=== PATIENT | female | born 1995 | race Caucasian/White ===

== ENCOUNTER 2017-06-10 22:13 | Emergency (ER) | payer OTHER ==
[~2017-06-10] VITALS: Ht 152.4 cm; Wt 60.0 kg
[2017-06-10 22:16] VITALS: TEMP 36.7; Ht 152.4 cm; Wt 60.0 kg
[2017-06-10] MEDS ORDERED: ALBUT/IPRATROP 3MG/0.5MG NEB 3 ML VIAL INH STA (22:33)
[2017-06-10] MEDS ORDERED: RANITIDINE HCL 50 MG/100 ML D5W IV STA (22:33)
[2017-06-10] MEDS ORDERED: SODIUM CHLORIDE 0.9% 1000ML 1,000 ML IV STA (22:33)
[2017-06-10] MEDS ORDERED: DEXAMETHASONE SOD INJ 4 MG/ML VIAL IV STA (22:33)
[2017-06-10] MEDS ORDERED: EpINEphrine INJ 1MG/ML AMP 1 MG/ML AMP IM STA (22:33)
[2017-06-10] MEDS ORDERED: DiphenhydrAMINE HCL 50 MG/ML VIAL IV STA (22:33)
[2017-06-10 22:47] VITALS: O2SAT 96
[2017-06-10] MEDS ORDERED: BCPILLS PO (23:46)
[2017-06-11 00:49] VITALS: BP 114/57; PULSE 92; O2SAT 99
[2017-06-11] MEDS ORDERED: EPINEPHRINE ADULT AUTO-INJECT 0.3 MG SYR IM STA (01:03)
[2017-06-11] MEDS ORDERED: EPP3/2 IM (01:06)
[2017-06-11] MEDS ORDERED: PRED50TA PO (01:06)
--- NOTE | 2017-06-11 03:12 | EMERGENCY ROOM VISIT NOTE ---
History Report prepared by [place]: Sarthak Solis Under the Supervision of: Dr. Wilfred Burton M.D. First contact with patient: 22:23 Chief Complaint: ALLERGIC REACTION Stated Complaint: HUVESMWHEEZING,FAST HEART RATE,HOT History of Present Illness The patient is a 21 year old female who presents to the Emergency Room with complaints of a sudden allergic reaction that occurred two hours ago. The patient states that she has an allergy to nuts and unknowingly ate a cashew in her [employer] bar two hours ago. The patient states that she normally eats [employer] bars , but was unaware the cranberry flavor had cashews in them. She states that following eating the nut, she experienced shortness of breath, hives, and tachycardia. The patient states that she took Benadryl for her symptoms, but became nauseated and vomited. The patient admits that following her episode of vomiting, she felt relieved. She states that she took another Benadryl since she vomited her first pill. The patient admits to an allergy to amoxicillin and a history of asthma. She denies having an EpiPen. Source of History: patient Onset: two hours ago Position: other (global) Quality: other (hives) Modifying Factors (Relieving): other (vomiting, Benadryl) Associated Symptoms: + SOB, + nausea, + vomiting Review of Systems See HPI for pertinent positives and negatives. A total of ten systems were reviewed and were otherwise negative. Past Medical & Surgical Medical Problems: (1) Asthma (2) Nut allergy Family History Patient reports no known family medical history. Social History Smoking Status: Former Smoker Drug Use: none Marital Status: single Housing Status: lives with roommate Occupation Status: [employer] student Current/Historical Medications Scheduled Control Pills ( Control Pills), 1 TAB PO DAILY Prednisone (Prednisone), 50 MG PO DAILY Scheduled PRN Epinephrine (Epipen), 0.3 MG IM UD PRN for ALLERGIC REACTION Allergies Coded Allergies: Amoxicillin (Verified Allergy, Severe, hives, 06/10/17) NUTS (Verified Allergy, Severe, hives, swelling throat, 06/10/17) Physical Exam Vital Signs Date Time Temp Pulse Resp B/P (MAP) Pulse Ox O2 Delivery O2 Flow Rate FiO2 06/11/17 00:49 92 18 114/57 99 Room Air 06/10/17 23:18 95 20 120/53 100 Room Air 06/10/17 22:51 104 20 130/77 99 Room Air 06/10/17 22:47 96 Room Air 06/10/17 22:46 103 06/10/17 22:34 96 Room Air 06/10/17 22:16 36.7 133 18 150/75 94 Room Air Physical Exam GENERAL: Awake, alert, well-appearing, in no distress HENT: Normocephalic, atraumatic. Oropharynx unremarkable. EYES: Normal conjunctiva. Sclera non-icteric. NECK: Supple. No nuchal rigidity. FROM. No JVD. RESPIRATORY: Clear to auscultation. CARDIAC: Regular rate, normal rhythm. Extremities warm and well perfused. Pulses equal. ABDOMEN: Soft, non-distended. No tenderness to palpation. No rebound or guarding. No masses. RECTAL: Deferred. MUSCULOSKELETAL: Chest examination reveals no tenderness. The back is symmetrical on inspection without obvious abnormality. There is no CVA tenderness to palpation. No joint edema. LOWER EXTREMITIES: Calves are equal size bilaterally and non-tender. No edema. No discoloration. NEURO: Normal sensorium. No sensory or motor deficits noted. SKIN: Diffuse erythema and hives. Medical Decision & Procedures Medications Administered Medications (Trade) Dose Ordered Sig/Dominic Route Start Time Stop Time Status Last Admin Dose Admin Ranitidine HCl (zANTac IV) 50 mg NOW STAT IV 06/10/17 22:33 06/10/17 22:35 DC 06/10/17 22:47 50 MG Sodium Chloride 1,000 ml @ 999 mls/hr Q1H1M STAT IV 06/10/17 22:33 06/10/17 23:33 DC 06/10/17 22:41 999 MLS/HR Albuterol/ Ipratropium (Duoneb) 3 ml NOW STAT INH 06/10/17 22:33 06/10/17 22:35 DC 06/10/17 22:43 3 ML Epinephrine HCl (EpINEphrine INJ 1MG/ML AMP/VIAL) 0.3 mg NOW STAT IM 06/10/17 22:33 06/10/17 22:35 DC 06/10/17 22:43 0.3 MG Diphenhydramine HCl (Benadryl Inj) 25 mg NOW STAT IV 06/10/17 22:33 06/10/17 22:35 DC 06/10/17 22:45 25 MG Dexamethasone Sodium Phosphate (Decadron Inj) 10 mg NOW STAT IV 06/10/17 22:33 06/10/17 22:35 DC 06/10/17 22:46 10 MG Epinephrine (Epipen) 0.3 mg NOW STAT IM 06/11/17 01:03 06/11/17 01:04 DC 06/11/17 01:15 0.3 MG ED Course 2233: Ordered Decadron Injection 10 mg IV, Benadryl Injection 25 mg IV, Epinephrine HCl 0.3 mg IM, Duoneb 3 ml INH, Sodium Chloride 1000 ml @ 999 mls/ hr IV, Zantac IV 50 mg IV. 2227: The patient was evaluated in room B11A. A complete history and physical exam was performed. 2305: I reevaluated the patient and she is feeling better. The patient is breathing normally and is only tired. 0022: I reevaluated the patient and she is feeling better. 0103: Ordered Epipen 0.3 mg IM. 0108: I reevaluated the patient. Discussed results and discharge instructions: She verbalized understanding and agreement. The patient is ready for discharge. Medical Decision Triage Nursing notes reviewed and agree them. Additional history obtained from the patient's friend. The patient's history was concerning for possible allergic reaction. Differential diagnosis: Etiologies such as allergic reaction, anaphylaxis, urticaria, Fair-Jaren syndrome, toxic epidermal necrolysis, erythema multiforme, cellulitis, as well as others were entertained. Physical examination: As above. ER treatment provided: Continuous cardiac monitoring Benadryl 25 mg IV Zantac 50 mg IV Decadron 10 mg IV Duo neb Epinephrine 0.3 mg IM On reassessment the patient felt better. Hives resolved. Diagnostic interpretation by me: Cardiac monitoring: The patient was placed on continuous cardiac monitoring and observed. It revealed a normal sinus rhythm without ectopy or evidence of dysrhythmia. It appears the patient had an allergic reaction. The above treatment did well to reverse the symptoms. After prolonged monitoring and frequent reassessments the patient did very well and symptoms resolved. By the evaluation outlined above emergent etiologies such as airway compromise, Fair-Jaren syndrome, toxic epidermal necrolysis, erythema multiforme, cellulitis, as well as others were deemed relatively unlikely. The patient was informed about the findings as listed above. All questions were answered and she was pleased with the treatment. Return instructions were outlined and the patient was discharged in stable condition. Outpatient prescription management: EpiPen. Prescription sent. The patient was also given an EpiPen prior to discharge. She was educated by nursing. prednisone Referral: The patient was referred to [facility] for a recheck of the current condition. Medication Reconcilliation Current Medication List: was personally reviewed by me Blood Pressure Screening Patient's blood pressure: Normal blood pressure Impression Primary Impression: Anaphylactic reaction Scribe Attestation The scribe's documentation has been prepared under my direction and personally reviewed by me in its entirety. I confirm that the note above accurately reflects all work, treatment, procedures, and medical decision making performed by me. Departure Information Dispostion Home / Self-Care Prescriptions Prednisone (Prednisone) 50 Mg Tab 50 MG PO DAILY for 2 Days, #2 TAB Prov: Wilfred Burton MD 06/11/17 Epinephrine (EPIPEN) 0.3 Mg/0.3 Ml Inj 0.3 MG IM UD Y for ALLERGIC REACTION, #1 DOSE Prov: Wilfred Burton MD 06/11/17 Referrals Yobani Brambila M.D. (PCP) Forms HOME CARE DOCUMENTATION FORM, IMPORTANT VISIT INFORMATION Patient Instructions My [facility] Additional Instructions ALLERGIC REACTION INSTRUCTIONS: DO NOT drive, drink alcohol, operate machinery, or perform dangerous activities today. You were given medications in the ER that can affect your ability to safely function or operate a vehicle. Epi-Pen: Use one injection as instructed for severe allergic reactions associated with shortness of breath, difficulty breathing, or throat or tongue swelling. If you use this injection call 911 or proceed immediately to the nearest Emergency Room. Prednisone 50mg: Once daily until the prescription is finished. It is best to take this earlier in the day as some patients note occasional difficulty falling asleep when taken in the late evening. Diphenhydramine(Benadryl) 25mg: use 25 to 50 mg every six hours for swelling, itching, or hives. This medication is sedating and will cause drowsiness. Avoid alcohol, operating machinery or dangerous equipment, working on ladders or roofs, DRIVING, or situations where being under the influence may be dangerous. Zantac 75: Take two pills twice a day along with Benadryl as needed for swelling , itching, or hives. Most people know this for its affect on the stomach, but it also acts similar to, but less potent than Benadryl for allergic reactions. Both the Benadryl and the Zantac are available [id number]. Continue current medications. Return to the emergency department for worsening of your rash, swelling of your face, lips, tongue, or throat, difficulty breathing, vomiting, or as needed. Follow-up with [facility] in 1-2 days for recheck of your current condition.
== END 2017-06-11 01:23 | disposition home or self-care (01) ==
LOC: C.EDB 22:15
DX: T78.05XA Anaphylactic reaction due to tree nuts and seeds, initial encounter (principal); X58.XXXA Exposure to other specified factors, initial encounter; J45.909 Unspecified asthma, uncomplicated; Z87.891 Personal history of nicotine dependence; Z91.018 Allergy to other foods; Z88.1 Allergy status to other antibiotic agents